=== PATIENT | male | born 1960 | race Caucasian/White ===

== ENCOUNTER 2016-12-12 12:40 | Inpatient (IN) | payer MEDICARE, BC ==
[~2016-12-12] VITALS: Ht 172.7 cm; Wt 80.2 kg
[2016-12-12] VITALS (7 sets, daily range): BP systolic 127–134; BP diastolic 36–78; PULSE 59–75; TEMP 97–98.5
[~2016-12-12 12:40] MED LIST: ABACAVIR PO; AMBIEN 5MG TABLE5 MG PO; ASPIR-LOW81 MG PO; ASPIRIN E.C. 8181 MG PO; ATIVAN 0.50.5 MG/TAB PO; BACTRIM DS 8001 TAB PO; COLACE 100100 MG/CAP PO; COREG 6.256.25 MG/TA PO; CYMBALTA 60MG60 MG PO; DESYREL DIVIDO300 MG PO; DIFLUCAN; EFFEXOR-XR150 MG PO; EPIVIR HBV100 MG PO; FLEXERIL 1010 MG/TAB PO; HUMALOG100 U/ML SC; HUMULIN R U-500 U/ML SQ; KEPPRA 500MG500 MG PO; LAMIVUDINE PO; LANTUS SOLOS100 U/ML SQ; LASIX 40MG TABL40 MG PO; LOVAZA; LYRICA 50MG CAP50 MG PO; LYRICA200 MG PO; MIRAPEX 1MG PO; MIRAPEX0.5 MG PO; MOBIC15 MG PO; NASACORT AQ N16.5 GM NS; NEXIUM PO; NITRO-DUR0.2 MG/PAT TD; NITROQUICK0.4 MG SL; NORVIR; NORVIR100 M1 PO; OXECTA5 MG PO; OXYCONTIN30 MG PO; PERCOCET 500 MG1 TAB PO; PLAVIX 75MG TAB75 MG PO; PREZISTA600 M1 PO; PREZISTA600 MG PO; PRIL40 PO; PRINIVIL5 MG PO; REMERON45 MG PO; SMZ-TMP; SUPER EPA 1201200 MG PO; TIVICAY PO; TOPROL XL 25MG25 MG PO; TOPROL XL 50MG50 MG PO; TOPROL XL25 MG PO; TRILIPIX 135MG PO; TRUVADA; TRUVADA PO; VALIUM 10MG10 MG/TAB PO; ZESTRIL 5MG5 MG PO; ZIDOVUDINE PO; [UNRECOGNIZED DRUG - OTHER]
[2016-12-12] MEDS ORDERED: COREG 3.123.125 MG/T PO (12:57)
[2016-12-12] MEDS ORDERED: LAMIVUDINE (12:59)
[2016-12-12] MEDS ORDERED: ABACAVIR (12:59)
[2016-12-12] MEDS ORDERED: DOLUTEGRAVIR (12:59)
[2016-12-12] MEDS ORDERED: MIRAPEX 1MG PO (13:00)
[2016-12-12] MEDS ORDERED: LYRICA 100MG C100 M1 PO (13:01)
[2016-12-12] MEDS ORDERED: HUMALOG100 U/ML SQ (13:05)
[2016-12-12] MEDS ORDERED: TRESIBA FL100 UNIT/1 SQ (13:06)
[2016-12-12] MEDS ORDERED: CYMBALTA 60MG60 MG PO (13:07)
[2016-12-12] MEDS ORDERED: PROTONIX 40MG T40 MG PO (13:07)
[2016-12-12] MEDS ORDERED: REMERON30 MG PO (13:08)
[2016-12-12] MEDS ORDERED: SEROQUEL 2525 MG/TAB PO (13:09)
[2016-12-12] MEDS ORDERED: RESTORIL 1515 MG/CAP PO (13:10)
[2016-12-12 14:04] LABS: INR 0.9 (0.8-3.0); PROTHROMBIN TIME 10.3 SECONDS (9.7-12.8)
[2016-12-12] MEDS ORDERED: NITROSTAT0.4 MG/TAB SL (15:12)
[2016-12-12] MEDS ORDERED: OXYCONTIN40 MG PO (15:13)
[2016-12-12 15:30] LABS: ANION GAP 12 mmol/L (7-16); BLOOD UREA NITROGEN 19 mg/dL (9-20); CARBON DIOXIDE 27 mmol/L (22-30); CHLORIDE 102 mmol/L (98-107); CREATININE, serum 0.91 mg/dL (0.66-1.25); GLUCOSE 216 mg/dL (74-106); POTASSIUM 3.9 mmol/L (3.4-5.0); SODIUM 140 mmol/L (137-145)
[2016-12-12 15:38] LABS: B-TYPE NATRIURETIC PEPTIDE 29 pg/mL (0-125)
[2016-12-12 15:44] LABS: CALCIUM 9.2 mg/dL (8.4-10.2)
[2016-12-12 15:45] LABS: BASO # 0.1 (0.0-0.2); BASO % 1.1 % (0.0-2.0); EOS # 0.3 (0.0-0.7); EOS % 4.3 % (0-4.0); GRAN # 4.4 (1.4-6.5); GRAN % 67.6 % (42.2-75.2); HEMATOCRIT 43.5 % (42.0-52.0); HEMOGLOBIN 15.1 g/dl (13.5-18.0); LYMPH # 1.3 (1.2-3.4); LYMPH % 20.1 % (20.0-51.0); MEAN CELL VOLUME 86 fl (80.0-100.0); MEAN CORPUSCULAR HEMOGLOBIN 30 pg (27.0-31.0); MEAN CORPUSCULAR HGB CONC 35 g/dl (33.0-37.0); MEAN PLATELET VOLUME 10.8 fl (7.4-10.4); MONO # 0.4 (0.1-0.6); MONO % 6.6 % (1.7-9.3); PLATELET COUNT 177 K/mm3 (130-400); RED BLOOD COUNT 5.06 M/mm3 (4.20-5.60); REDCELL DISTRIBUTION WIDTH-CV 12.9 % (11.5-14.5); WHITE BLOOD COUNT 6.6 K/mm3 (4.8-10.8)
[2016-12-12 15:50] LABS: TROPONIN-I < 0.012 ng/mL (0.000-0.034)
[2016-12-13] VITALS (10 sets, daily range): BP systolic 114–166; BP diastolic 57–77; PULSE 54–71; TEMP 97.4–98.6
[2016-12-13 06:30] LABS: HEMATOCRIT 44.6 % (42.0-52.0); HEMOGLOBIN 14.8 g/dl (13.5-18.0); MEAN CELL VOLUME 89 fl (80.0-100.0); MEAN CORPUSCULAR HEMOGLOBIN 30 pg (27.0-31.0); MEAN CORPUSCULAR HGB CONC 33 g/dl (33.0-37.0); MEAN PLATELET VOLUME 10.7 fl (7.4-10.4); PLATELET COUNT 153 K/mm3 (130-400); RED BLOOD COUNT 5.01 M/mm3 (4.20-5.60); WHITE BLOOD COUNT 5.1 K/mm3 (4.8-10.8)
[2016-12-13 06:32] LABS: INR 0.9 (0.8-3.0); PROTHROMBIN TIME 10.3 SECONDS (9.7-12.8)
[2016-12-13 06:35] LABS: PARTIAL THROMBOPLASTIN TIME 30.4 SECONDS (26.0-37.0)
[2016-12-13 06:37] LABS: CALCIUM 8.8 mg/dL (8.4-10.2); CREATININE, serum 0.9 mg/dL (0.66-1.25); POTASSIUM 3.9 mmol/L (3.4-5.0)
[2016-12-14 03:09] VITALS: BP 139/63; PULSE 67; TEMP 97.2
[2016-12-14 08:48] VITALS: BP 126/63; PULSE 65; TEMP 98.3
[2016-12-14 10:58] VITALS: BP 125/61; PULSE 71; TEMP 97.7
[2016-12-14 14:57] VITALS: BP 107/58; PULSE 92; TEMP 98.4
[2016-12-14 17:38] VITALS: BP 132/62; PULSE 65
[2016-12-14 21:03] VITALS: BP 125/78; PULSE 66; TEMP 97.5
[2016-12-15 00:14] VITALS: BP 126/59; PULSE 62; TEMP 97.9
[2016-12-15 03:12] VITALS: BP 116/54; PULSE 65; TEMP 98.4
[2016-12-15 07:30] VITALS: BP 107/67; PULSE 65; TEMP 98
[2016-12-15 11:05] VITALS: BP 125/60; PULSE 65; TEMP 97.6
== END 2016-12-15 13:23 | disposition home or self-care (01) | DRG 312 ==
LOC: MEDICAL 12:40
PROVIDERS: Internal Medicine Cardiovascular Disease
DX: R55 Syncope and collapse (principal); B20 Human immunodeficiency virus [HIV] disease; T42.8X5A Adverse effect of antiparkinsonism drugs and other central muscle-tone depressants, initial encounter; I12.9 Hypertensive chronic kidney disease with stage 1 through stage 4 chronic kidney disease, or unspecified chronic kidney disease; E11.22 Type 2 diabetes mellitus with diabetic chronic kidney disease; N18.3 Chronic kidney disease, stage 3 (moderate); I25.82 Chronic total occlusion of coronary artery; I25.10 Atherosclerotic heart disease of native coronary artery without angina pectoris; Z95.5 Presence of coronary angioplasty implant and graft; Z95.810 Presence of automatic (implantable) cardiac defibrillator; G20 Parkinson's disease; F17.210 Nicotine dependence, cigarettes, uncomplicated; G47.33 Obstructive sleep apnea (adult) (pediatric); E11.65 Type 2 diabetes mellitus with hyperglycemia; Z79.4 Long term (current) use of insulin
CPT/HCPCS: 99222; 99223; 99232-AI; A9502; J1815; J2785

== ENCOUNTER 2017-02-22 07:34 | Outpatient (CLI) | payer MEDICARE, BC ==
[~2017-02-22] VITALS: Ht 172.8 cm; Wt 83.2 kg
[~2017-02-22 07:34] MED LIST changes: +ABACAVIR; +COREG 3.123.125 MG/T PO; +DOLUTEGRAVIR; +HUMALOG100 U/ML SQ; +LAMIVUDINE; +LYRICA 100MG C100 M1 PO; +NITROSTAT0.4 MG/TAB SL; +OXYCONTIN40 MG PO; +PROTONIX 40MG T40 MG PO; +REMERON30 MG PO; +RESTORIL 1515 MG/CAP PO; +SEROQUEL 2525 MG/TAB PO; +TRESIBA FL100 UNIT/1 SQ
[2017-02-22] MEDS ORDERED: EPZICOM PO (08:27)
[2017-02-22] MEDS ORDERED: TIVICAY PO (08:28)
[2017-02-22] MEDS ORDERED: HUMALOG100 U/ML SQ ×2 (08:39→08:40)
[2017-02-22] MEDS ORDERED: LUNESTA 1MG TAB1 MG PO (08:42)
[2017-02-22 08:45] VITALS: BP 129/71; PULSE 82; TEMP 97.9
[2017-02-22 10:37] VITALS: BP 130/74; PULSE 66
[2017-02-22] MEDS ORDERED: CLEOCIN HCL300 MG PO (11:49)
[2017-02-22 12:10] VITALS: BP 131/73; PULSE 75; TEMP 97.7
== END 2017-02-22 12:30 | disposition home or self-care (01) ==
LOC: COL.CAR 07:34
DX: R55 Syncope and collapse (principal); I25.10 Atherosclerotic heart disease of native coronary artery without angina pectoris; B20 Human immunodeficiency virus [HIV] disease; I12.9 Hypertensive chronic kidney disease with stage 1 through stage 4 chronic kidney disease, or unspecified chronic kidney disease; E78.5 Hyperlipidemia, unspecified; I73.9 Peripheral vascular disease, unspecified; F17.200 Nicotine dependence, unspecified, uncomplicated; N18.9 Chronic kidney disease, unspecified; Z79.4 Long term (current) use of insulin
CPT/HCPCS: C1764

== ENCOUNTER 2017-02-26 14:39 | Emergency (ER) | payer MEDICARE, BC ==
[~2017-02-26] VITALS: Ht 172.7 cm; Wt 77.3 kg
[~2017-02-26 14:39] MED LIST changes: +CLEOCIN HCL300 MG PO; +EPZICOM PO; +LUNESTA 1MG TAB1 MG PO
[2017-02-26 14:48] VITALS: TEMP 97.4
[2017-02-26 15:08] LABS: BASO # 0.1 (0.0-0.2); BASO % 1.1 % (0.0-2.0); EOS # 0.2 (0.0-0.7); EOS % 2.9 % (0-4.0); GRAN # 3.8 (1.4-6.5); GRAN % 69.1 % (42.2-75.2); HEMATOCRIT 47.3 % (42.0-52.0); HEMOGLOBIN 16.2 g/dl (13.5-18.0); LYMPH # 1.1 (1.2-3.4); LYMPH % 19.1 % (20.0-51.0); MEAN CELL VOLUME 87 fl (80.0-100.0); MEAN CORPUSCULAR HEMOGLOBIN 30 pg (27.0-31.0); MEAN CORPUSCULAR HGB CONC 34 g/dl (33.0-37.0); MEAN PLATELET VOLUME 10.5 fl (7.4-10.4); MONO # 0.4 (0.1-0.6); MONO % 7.3 % (1.7-9.3); PLATELET COUNT 134 K/mm3 (130-400); RED BLOOD COUNT 5.41 M/mm3 (4.20-5.60); WHITE BLOOD COUNT 5.5 K/mm3 (4.8-10.8)
[2017-02-26 15:16] LABS: INR 0.9 (0.8-3.0); PROTHROMBIN TIME 10.2 SECONDS (9.7-12.8)
[2017-02-26 15:19] LABS: PARTIAL THROMBOPLASTIN TIME 28.7 SECONDS (26.0-37.0)
[2017-02-26 15:21] LABS: ADJUSTED CALCIUM 9.7 mg/dL (8.4-10.2); ALANINE AMINOTRANSFERASE 29 U/L (21-72); ALBUMIN 4.5 gm/dL (3.5-5.0); ALKALINE PHOSPHATASE 112 U/L (50-136); ANION GAP 12 mmol/L (7-16); BILIRUBIN,TOTAL 0.7 mg/dL (0.0-1.0); BLOOD UREA NITROGEN 25 mg/dL (9-20); CALCIUM 10.1 mg/dL (8.4-10.2); CARBON DIOXIDE 25 mmol/L (22-30); CHLORIDE 101 mmol/L (98-107); CREATININE, serum 0.93 mg/dL (0.66-1.25); GLUCOSE 309 mg/dL (74-106); POTASSIUM 4.2 mmol/L (3.4-5.0); SODIUM 138 mmol/L (137-145); TOTAL PROTEIN 7.9 gm/dL (6.4-8.2)
[2017-02-26 15:44] LABS: TROPONIN-I < 0.012 ng/mL (0.000-0.034)
[2017-02-26 17:51] VITALS: BP 124/72; PULSE 70
== END 2017-02-26 18:41 | disposition short-term general hospital (02) ==
LOC: COL.ER 14:39
PROVIDERS: Family Medicine
DX: I25.110 Atherosclerotic heart disease of native coronary artery with unstable angina pectoris (principal); I10 Essential (primary) hypertension; E78.5 Hyperlipidemia, unspecified; Z95.5 Presence of coronary angioplasty implant and graft; Z87.891 Personal history of nicotine dependence; Z79.02 Long term (current) use of antithrombotics/antiplatelets; Z79.4 Long term (current) use of insulin; Z21 Asymptomatic human immunodeficiency virus [HIV] infection status
CPT/HCPCS: J1650

== ENCOUNTER 2017-04-04 10:24 | Inpatient (IN) | payer MEDICARE, BC ==
[2017-04-04] VITALS (101 sets, daily range): BP systolic 113–153; BP diastolic 63–89; PULSE 59–71; TEMP 97–97.8; O2SAT 85–100
[~2017-04-04] VITALS: Ht 172.8 cm; Wt 80.6 kg
[2017-04-04 11:30] LABS: HEMATOCRIT 44.3 % (42.0-52.0); HEMOGLOBIN 15.6 g/dl (13.5-18.0); MEAN CELL VOLUME 86 fl (80.0-100.0); MEAN CORPUSCULAR HEMOGLOBIN 30 pg (27.0-31.0); MEAN CORPUSCULAR HGB CONC 35 g/dl (33.0-37.0); MEAN PLATELET VOLUME 10.4 fl (7.4-10.4); PLATELET COUNT 178 K/mm3 (130-400); RED BLOOD COUNT 5.13 M/mm3 (4.20-5.60); REDCELL DISTRIBUTION WIDTH-CV 13.2 % (11.5-14.5); WHITE BLOOD COUNT 6.9 K/mm3 (4.8-10.8)
[2017-04-04 11:38] LABS: CALCIUM 9.8 mg/dL (8.4-10.2); CREATININE, serum 0.99 mg/dL (0.66-1.25); POTASSIUM 3.9 mmol/L (3.4-5.0)
[2017-04-04 11:54] LABS: INR 1.1 (0.8-3.0); PROTHROMBIN TIME 12.7 SECONDS (9.7-12.8)
[2017-04-05] VITALS (12 sets, daily range): BP systolic 114–144; BP diastolic 61–95; PULSE 45–61; TEMP 96.9–98.1; O2SAT 96–97
[2017-04-05 04:28] LABS: BASO # 0.1 (0.0-0.2); BASO % 0.9 % (0.0-2.0); EOS # 0.3 (0.0-0.7); EOS % 4.1 % (0-4.0); GRAN # 4.3 (1.4-6.5); GRAN % 62.5 % (42.2-75.2); HEMATOCRIT 44.8 % (42.0-52.0); HEMOGLOBIN 15.2 g/dl (13.5-18.0); LYMPH # 1.6 (1.2-3.4); LYMPH % 22.9 % (20.0-51.0); MEAN CELL VOLUME 88 fl (80.0-100.0); MEAN CORPUSCULAR HEMOGLOBIN 30 pg (27.0-31.0); MEAN CORPUSCULAR HGB CONC 34 g/dl (33.0-37.0); MEAN PLATELET VOLUME 10.3 fl (7.4-10.4); MONO # 0.6 (0.1-0.6); MONO % 9.2 % (1.7-9.3); PLATELET COUNT 181 K/mm3 (130-400); RED BLOOD COUNT 5.07 M/mm3 (4.20-5.60); REDCELL DISTRIBUTION WIDTH-CV 13.8 % (11.5-14.5); WHITE BLOOD COUNT 6.9 K/mm3 (4.8-10.8)
[2017-04-05 04:39] LABS: CALCIUM 9.4 mg/dL (8.4-10.2); CREATININE, serum 0.94 mg/dL (0.66-1.25); POTASSIUM 3.9 mmol/L (3.4-5.0)
[2017-04-06 03:47] VITALS: BP 126/69; PULSE 54; TEMP 97.6
[2017-04-06 06:35] LABS: BASO # 0.1 (0.0-0.2); BASO % 0.9 % (0.0-2.0); EOS # 0.2 (0.0-0.7); EOS % 4.3 % (0-4.0); GRAN % 56.8 % (42.2-75.2); HEMATOCRIT 43.8 % (42.0-52.0); HEMOGLOBIN 14.4 g/dl (13.5-18.0); LYMPH # 1.5 (1.2-3.4); LYMPH % 27.4 % (20.0-51.0); MEAN CELL VOLUME 89 fl (80.0-100.0); MEAN CORPUSCULAR HEMOGLOBIN 29 pg (27.0-31.0); MEAN CORPUSCULAR HGB CONC 33 g/dl (33.0-37.0); MEAN PLATELET VOLUME 10.8 fl (7.4-10.4); MONO # 0.5 (0.1-0.6); PLATELET COUNT 170 K/mm3 (130-400); RED BLOOD COUNT 4.92 M/mm3 (4.20-5.60); REDCELL DISTRIBUTION WIDTH-CV 13.6 % (11.5-14.5); WHITE BLOOD COUNT 5.3 K/mm3 (4.8-10.8)
[2017-04-06 06:42] LABS: CALCIUM 9.4 mg/dL (8.4-10.2); CREATININE, serum 0.9 mg/dL (0.66-1.25); POTASSIUM 4.1 mmol/L (3.4-5.0)
[2017-04-06 07:57] VITALS: BP 120/79; PULSE 51; TEMP 97.4
[2017-04-06] MEDS ORDERED: BETAPACE 80MG80 MG PO (12:51)
[2017-04-06] MEDS ORDERED: SPIRIVA RE2.5 MCG/Ac IH (12:52)
== END 2017-04-06 14:12 | disposition home or self-care (01) | DRG 246 ==
LOC: COL.CAR 10:24 → ICU 14:49 → COL.CAR 04-05 07:59 → MEDICAL 04-05 08:00 → ICU 04-05 08:00 → MEDICAL 04-05 16:36
PROVIDERS: Internal Medicine Cardiovascular Disease
PROC: B2111ZZ Fluoroscopy of Multiple Coronary Arteries using Low Osmolar Contrast (ICD-10-PCS; principal; 2017-04-04)
PROC: 027034Z Dilation of Coronary Artery, One Artery with Drug-eluting Intraluminal Device, Percutaneous Approach (ICD-10-PCS; 2017-04-04)
PROC: B2151ZZ Fluoroscopy of Left Heart using Low Osmolar Contrast (ICD-10-PCS; 2017-04-04)
DX: I48.0 Paroxysmal atrial fibrillation (principal); B20 Human immunodeficiency virus [HIV] disease; I25.10 Atherosclerotic heart disease of native coronary artery without angina pectoris; Z95.5 Presence of coronary angioplasty implant and graft; I12.9 Hypertensive chronic kidney disease with stage 1 through stage 4 chronic kidney disease, or unspecified chronic kidney disease; E11.22 Type 2 diabetes mellitus with diabetic chronic kidney disease; N18.3 Chronic kidney disease, stage 3 (moderate); G20 Parkinson's disease; I48.92 Unspecified atrial flutter; F17.210 Nicotine dependence, cigarettes, uncomplicated
CPT/HCPCS: OP; C1760; C1769; C1874; C1887; C1894; C9600; J1644; J1815; J2250; J2704; J3010; Q9967